=== PATIENT | female | born 1950 | race Caucasian/White ===

== ENCOUNTER 2020-05-01 17:40 | Emergency (ER) | payer MEDICARE, BC ==
[2020-05-01] MEDS: Nitroglycerin 0.4 MG Tab.SL SL PRN ×2 (18:20→19:29)
--- NOTE | 2020-05-01 18:21 | EDM.PDOC ---
ED HPI GENERAL MEDICAL PROBLEM - General Chief Complaint: Cardiovascular Problem Stated Complaint: CHEST PAIN Time Seen by Provider: 05/01/20 18:00 Source of Information: Reports: Patient History Limitations: Reports: No Limitations - History of Present Illness INITIAL COMMENTS - FREE TEXT/NARRATIVE: 70-year-old female noted some heaviness in her chest of 11 AM this morning some 7 hours ago which has persisted nearly all the time of variable intensity and severity since then. No associated nausea vomiting. No radiation of pain. No diaphoresis. No history of the same pain. She does have back discomfort and sees a chiropractor and did today. About 4 PM the chiropractor gave her adjustments but she continued with discomfort in her chest to the chiropractor together with her family member suggested to come in as she had not felt like this before. She has no history of cardiac disease and does not take medications by prescription. Father at age 32 apparently of heart disease Normal activity but does not go up and down steps much because her arthritis in her knees hurts too much. Onset: Today, Sudden Duration: Hour(s):, Intermittent Location: Reports: Chest Quality: Reports: Dull, Pressure Severity: Moderate Improves with: Reports: None Worsens with: Reports: None Associated Symptoms: Reports: Chest Pain. Denies: Cough, Diaphoresis, Nausea/Vomiting Upper Back Pain Score (Numeric/FACES): 5 - Related Data Allergies Allergy/AdvReac Type Severity Reaction Status Date / Time fluorescein Allergy Other Verified 04/01/16 06:46 latex Allergy Rash Verified 04/01/16 06:46 Sulfa (Sulfonamide Allergy Nausea Verified 06/28/15 15:34 Antibiotics) Home Meds: Home Meds NK [No Known Home Meds] 05/02/20 [History] Past Medical History HEENT History: Reports: Hard of Hearing Cardiovascular History: Reports: Blood Clots/VTE/DVT Respiratory History: Reports: Bronchitis, Recurrent, Other (See Below) Other Respiratory History: pleurisy Gastrointestinal History: Reports: Colon Polyp Genitourinary History: Reports: Other (See Below) Other Genitourinary History: bladder repair x 3 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: 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 Uterine Bleeding, Fibroids Musculoskeletal History: Reports: Arthritis, Fracture, Other (See Below) Other Musculoskeletal History: left leg fracture in 3rd grade, bone spur right heel Endocrine/Metabolic History: Reports: Obesity/BMI 30+ Oncologic (Cancer) History: Reports: Basal Cell Carcinoma, Other (See Below) Other Oncologic History: basal cell ca removed from face,chest, back Dermatologic History: Reports: Cellulitis - Infectious Disease History Infectious Disease History: Reports: Chicken Pox, Measles, Mumps - Past Surgical History HEENT Surgical History: Reports: Oral Surgery, Tonsillectomy Musculoskeletal Surgical History: Reports: Carpal Tunnel Social & Family History - Family History Family Medical History: No Pertinent Family History - Tobacco Use Tobacco Use Status *Q: Never Tobacco User - Caffeine Use Caffeine Use: Reports: Coffee Caffeine Use Comment: quit drinking coffee 2 weeks ago ED ROS GENERAL - Review of Systems Review Of Systems: See Below Constitutional: Reports: No Symptoms HEENT: Reports: No Symptoms Respiratory: Reports: No Symptoms Cardiovascular: Reports: Chest Pain Endocrine: Reports: No Symptoms GI/Abdominal: Reports: No Symptoms : Reports: No Symptoms Musculoskeletal: Reports: Back Pain Skin: Reports: No Symptoms Neurological: Reports: No Symptoms Psychiatric: Reports: No Symptoms Hematologic/Lymphatic: Reports: No Symptoms Immunologic: Reports: No Symptoms ED EXAM, GENERAL - Physical Exam Exam: See Below Exam Limited By: No Limitations General Appearance: Alert, WD/WN, Anxious, Mild Distress Eye Exam: Bilateral Eye: EOMI, PERRL Ears: Normal External Exam Ear Exam: Bilateral Ear: Other (poor hearing bilaterally) Nose: Normal Inspection Throat/Mouth: Normal Inspection Head: Atraumatic, Normocephalic Neck: Normal Inspection Respiratory/Chest: No Respiratory Distress, Lungs Clear, Normal Breath Sounds, No Accessory Muscle Use Cardiovascular: Regular Rate, Rhythm, No Edema GI/Abdominal: Normal Bowel Sounds, Soft, Non-Tender Extremities: Normal Inspection, Normal Range of Motion, Non-Tender, No Pedal Edema Course - Vital Signs Text/Narrative:: female developed chest heaviness at 11:00 this morning which is persisted intermittently all day. No history of cardiac disease but has a father who at 32 of heart disease. Glycerin sublingually gives her complete relief of her discomfort and her chest x-ray is unremarkable. Her work is okay except for a troponin of of about 5. Cardiogram at 7:00 shows a rather similar cardiogram but perhaps some T wave inversions developed now in the lateral leads. [place] will be made for transfer to cardiology in if available 7;30 p.m. she has a little recurrent chest tightness which responded with again with nitroglycerin Dr. Holden is willing to accept the patient in transfer and will be sent to the emergency department in [place]. The cardiograms are sent by phone to Dr. Dunn Reports a flourscein allergy 324 aspirin chewable and bolus of heparin and drip ordered Last Recorded V/S: Last Vital Signs Temp 35.2 C L 05/01/20 18:02 Pulse 81 05/01/20 19:28 Resp 19 05/01/20 19:28 BP 158/98 H 05/01/20 19:29 Pulse Ox 99 05/01/20 19:28 - Orders/Labs/Meds Labs: Laboratory Tests 05/01/20 05/01/20 05/01/20 Range/Units 18:14 18:14 18:14 WBC 9.6 (4.5-11.0) K/uL RBC 5.14 (3.30-5.50) M/uL Hgb 14.2 (12.0-15.0) g/dL Hct 43.5 (36.0-48.0) % MCV 85 (80-98) fL MCH 28 (27-31) pg MCHC 33 (32-36) % Plt Count 182 (150-400) K/uL PT 10.5 (9.5-12.0) sec INR 0.96 (0.80-1.20) D-Dimer, Quantitative 595.05 H (0.0-500.0) ng/mL ABG Hemoglobin (12.0-16.0) g/dL ABG Oxyhemoglobin % ABG Carboxyhemoglobin (0.0-1.6) % ABG Methemoglobin % VBG pH (7.350-7.450) VBG pCO2 mm/Hg VBG pO2 mm/Hg VBG HCO3 mmol/L VBG Total CO2 mmol/L VBG O2 Saturation VBG O2 Content %vol VBG Base Excess mm/L O2 Delivery Device Sodium (140-148) mmol/L Potassium (3.6-5.2) mmol/L Chloride (100-108) mmol/L Carbon Dioxide (21-32) mmol/L Anion Gap (5.0-14.0) mmol/L BUN (7-18) mg/dL Creatinine (0.6-1.0) mg/dL Est Cr Clr Drug Dosing mL/min Estimated GFR (MDRD) (>60) Glucose (74-106) mg/dL Calcium (8.5-10.1) mg/dL Total Bilirubin (0.2-1.0) mg/dL AST (15-37) U/L ALT (12-78) U/L Alkaline Phosphatase (46-116) U/L Troponin I (0.000-0.056) ng/mL Total Protein (6.4-8.2) g/dL Albumin (3.4-5.0) g/dL Globulin (2.3-3.5) g/dL Albumin/Globulin Ratio (1.2-2.2) SARS-CoV-2 RNA (ADA) (NEGATIVE) 05/01/20 05/01/20 05/01/20 Range/Units 18:14 18:20 18:44 WBC (4.5-11.0) K/uL RBC (3.30-5.50) M/uL Hgb (12.0-15.0) g/dL Hct (36.0-48.0) % MCV (80-98) fL MCH (27-31) pg MCHC (32-36) % Plt Count (150-400) K/uL PT (9.5-12.0) sec INR (0.80-1.20) D-Dimer, Quantitative (0.0-500.0) ng/mL ABG Hemoglobin 13.9 (12.0-16.0) g/dL ABG Oxyhemoglobin 73.2 % ABG Carboxyhemoglobin 1.3 (0.0-1.6) % ABG Methemoglobin 0.9 % VBG pH 7.401 (7.350-7.450) VBG pCO2 41.0 mm/Hg VBG pO2 42.5 mm/Hg VBG HCO3 24.9 mmol/L VBG Total CO2 22.1 mmol/L VBG O2 Saturation 74.8 VBG O2 Content 14.3 %vol VBG Base Excess 0.6 mm/L O2 Delivery Device Room air Sodium 143 (140-148) mmol/L Potassium 3.7 (3.6-5.2) mmol/L Chloride 110 H (100-108) mmol/L Carbon Dioxide 27 (21-32) mmol/L Anion Gap 9.7 (5.0-14.0) mmol/L BUN 16 (7-18) mg/dL Creatinine 0.9 (0.6-1.0) mg/dL Est Cr Clr Drug Dosing 55.23 mL/min Estimated GFR (MDRD) > 60 (>60) Glucose 107 H (74-106) mg/dL Calcium 9.2 (8.5-10.1) mg/dL Total Bilirubin 0.4 (0.2-1.0) mg/dL AST 21 (15-37) U/L ALT 21 (12-78) U/L Alkaline Phosphatase 54 (46-116) U/L Troponin I 5.103 H* (0.000-0.056) ng/mL Total Protein 7.0 (6.4-8.2) g/dL Albumin 3.5 (3.4-5.0) g/dL Globulin 3.5 (2.3-3.5) g/dL Albumin/Globulin Ratio 1.0 L (1.2-2.2) SARS-CoV-2 RNA (ADA) Negative (NEGATIVE) Meds: Medications Discontinued Medications Generic Name Dose Route Start Last Admin Trade Name Freq PRN Reason Stop Dose Admin Aspirin 324 mg 05/01/20 19:46 05/01/20 19:54 Aspirin PO 05/01/20 19:47 324 mg ONETIME ONE Administration Heparin Sodium (Porcine) 4,000 units 05/01/20 19:46 05/01/20 19:54 Heparin Sodium IVPUSH 05/01/20 19:47 4,000 units .BOLUS ONE Administration Nitroglycerin 0.4 mg 05/01/20 18:15 05/01/20 19:29 Nitrostat SL 0.4 mg Q5M PRN Administration Chest Pain Departure - Departure Time of Disposition: 19:32 Disposition: DC/Tfer to Acute Hospital 02 Reason for Transfer *Q: Other (Possible angiography and/or stent) Condition: Good, Serious Clinical Impression: Ischemic heart disease due to coronary artery obstruction, Chest pain Coronary artery disease Qualifiers: Coronary Disease-Associated Artery/Lesion type: [place] artery [place] vs. transplanted heart: [place] heart Associated angina: with unstable angina Qualified Code(s): I25.110 - Atherosclerotic heart disease of [place] coronary artery with unstable angina pectoris Chest pain due to myocardial ischemia Qualifiers: Ischemic chest pain type: unstable angina pectoris Qualified Code(s): I20.0 - Unstable angina Referrals: Callie Christine PA [Primary Care Provider] - Forms: ED Department Discharge, Interfacility Transfer [facility] Sepsis Event Note (ED) - Evaluation Sepsis Screening Result: No Definite Risk
[2020-05-01 19:29] VITALS: BP 158/98; PULSE 81
[2020-05-01] MEDS ORDERED: Heparin Sodium 5,000 Units/ML Vial IVPUSH ONE (19:46)
[2020-05-01] MEDS ORDERED: Aspirin 81 MG Tab.Chew PO ONE (19:46)
--- NOTE | 2020-05-02 09:03 | CR ---
CHEST: Portable 05/11/2020 at 6:30 PM CLINICAL HISTORY:SOB and chest pain COMPARISON: 2009 FINDINGS: The heart size, pulmonary vascularity and hilar structures are normal. No infiltrate effusion or pneumothorax is seen. There are atherosclerotic changes in the aorta. IMPRESSION: No acute cardiopulmonary process
== END 2020-05-01 20:43 ==
LOC: JP.ED 17:40
DX: I21.9 Acute myocardial infarction, unspecified (principal); I25.110 Atherosclerotic heart disease of native coronary artery with unstable angina pectoris; E66.9 Obesity, unspecified; Z68.30 Body mass index [BMI] 30.0-30.9, adult; Z20.828 Contact with and (suspected) exposure to other viral communicable diseases; Z91.040 Latex allergy status; Z88.2 Allergy status to sulfonamides; Z88.8 Allergy status to other drugs, medicaments and biological substances
CPT/HCPCS: 36415; 71045; 80053; 82803; 84484; 85027; 85379; 85610; 93005; 93010; 96374; 99285; A9270; J1644; U0002

== ENCOUNTER 2021-04-21 13:27 | Emergency (ER) | payer MEDICARE, BC ==
[2021-04-21 13:56] VITALS: BP 141/63; PULSE 68
--- NOTE | 2021-04-21 14:18 | EDM.PDOC ---
ED HPI GENERAL MEDICAL PROBLEM - General Chief Complaint: General Stated Complaint: right eye maybe BROKEN BLOOD VESSEL Time Seen by Provider: 04/21/21 14:18 Source of Information: Reports: Patient, RN Notes Reviewed History Limitations: Reports: No Limitations - History of Present Illness INITIAL COMMENTS - FREE TEXT/NARRATIVE: Garth presents today with bleeding to the right eye. She states she was sitting at her computer when her eye stated irritating her, she rubbed it and now she has blood to the white of her eye. She states this happened at about 1300 today. She denies any injury or trauma to the eye. She denies fever, chills, nausea, vomiting, change in bowel/bladder or other concerns. She take warfarin. - Related Data Allergies Allergy/AdvReac Type Severity Reaction Status Date / Time fluorescein Allergy Other Verified 04/21/21 13:51 latex Allergy Rash Verified 04/21/21 13:51 Sulfa (Sulfonamide Allergy Nausea Verified 04/21/21 13:51 Antibiotics) Home Meds: Home Meds Losartan [Cozaar] 25 mg PO DAILY 10/15/20 [History] carvediloL [Carvedilol] 25 mg PO DAILY 10/15/20 [History] Sotalol [Betapace, Sorine] 80 mg PO BID 04/21/21 [History] Warfarin [Coumadin] 5 mg PO ASDIRECTED 04/21/21 [History] Past Medical History HEENT History: Reports: Hard of Hearing, Impaired Vision Cardiovascular History: Reports: Afib, Blood Clots/VTE/DVT, Other (See Below) Other Cardiovascular History: broken heart syndrome Respiratory History: Reports: Bronchitis, Recurrent, Other (See Below) Other Respiratory History: pleurisy Gastrointestinal History: Reports: Colon Polyp Genitourinary History: Reports: Other (See Below) Other Genitourinary History: bladder repair x 3 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: 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 Uterine Bleeding, Fibroids Musculoskeletal History: Reports: Arthritis, Fracture, Other (See Below) Other Musculoskeletal History: left leg fracture in 3rd grade, bone spur right heel Endocrine/Metabolic History: Reports: Obesity/BMI 30+ Hematologic History: Reports: Anticoagulation Therapy Oncologic (Cancer) History: Reports: Basal Cell Carcinoma, Squamous Cell Carcinoma, Other (See Below) Other Oncologic History: basal cell ca removed from face,chest, back Dermatologic History: Reports: Cellulitis - Infectious Disease History Infectious Disease History: Reports: Chicken Pox, Measles, Mumps, Novel Coronavirus - Past Surgical History HEENT Surgical History: Reports: Oral Surgery, Tonsillectomy Cardiovascular Surgical History: Reports: None Respiratory Surgical History: Reports: None GI Surgical History: Reports: Colonoscopy, Polypectomy Female Surgical History: Reports: Hysterectomy, Salpingo-Oophorectomy Musculoskeletal Surgical History: Reports: Carpal Tunnel Oncologic Surgical History: Reports: None Social & Family History - Family History Family Medical History: No Pertinent Family History - Tobacco Use Tobacco Use Status *Q: Never Tobacco User - Caffeine Use Caffeine Use: Reports: Coffee Caffeine Use Comment: quit drinking coffee 2 weeks ago ED ROS GENERAL - Review of Systems Review Of Systems: See Below Constitutional: Reports: No Symptoms HEENT: Reports: Eye Pain (pain 3/10, patient states it feels weird and swollen. ). Denies: Contact Lenses, Ear Discharge, Ear Pain, Eye Discharge, Nosebleed, Nose Pain, Rhinitis, Sinus Problem, Throat Pain, Throat Swelling, Vertigo, Vision Change Respiratory: Reports: No Symptoms Cardiovascular: Reports: No Symptoms Endocrine: Reports: No Symptoms GI/Abdominal: Reports: No Symptoms : Reports: No Symptoms Musculoskeletal: Reports: No Symptoms Skin: Reports: No Symptoms Neurological: Reports: No Symptoms Psychiatric: Reports: No Symptoms Hematologic/Lymphatic: Reports: No Symptoms Immunologic: Reports: No Symptoms ED EXAM, GENERAL - Physical Exam Exam: See Below Exam Limited By: No Limitations General Appearance: Alert, WD/WN, No Apparent Distress Eye Exam: Bilateral Eye: PERRL, Other (subconjunctival hematoma to 95% right eye) Ears: Normal External Exam, Normal Canal, Hearing Grossly Normal, Normal TMs Throat/Mouth: Normal Inspection, Normal Lips, Normal Teeth, Normal Gums, Normal Oropharynx, Normal Voice, No Airway Compromise Head: Atraumatic, Normocephalic Neck: Normal Inspection, Supple, Non-Tender, Full Range of Motion. No: Ly mphadenopathy (R), Lymphadenopathy (L) Respiratory/Chest: No Respiratory Distress, Lungs Clear, Normal Breath Sounds, No Accessory Muscle Use, Chest Non-Tender Cardiovascular: Normal Peripheral Pulses, Regular Rate, Rhythm, No Edema, No Gallop, No Murmur, No Rub Peripheral Pulses: 4+: Radial (L), Radial (R) Back Exam: Normal Inspection, Full Range of Motion. No: CVA Tenderness (R), CVA Tenderness (L) Extremities: Normal Inspection, Normal Range of Motion, Non-Tender, No Pedal Edema, Normal Capillary Refill Neurological: Alert, Oriented, CN II-XII Intact, Normal Cognition, Normal Gait, Normal Reflexes, No Motor/Sensory Deficits Psychiatric: Normal Affect, Normal Mood Skin Exam: Warm, Dry, Intact, Normal Color, No Rash Lymphatic: No Adenopathy Course - Vital Signs Last Recorded V/S: Last Vital Signs Temp 36.7 C 04/21/21 13:55 Pulse 68 04/21/21 13:55 Resp 17 04/21/21 13:55 BP 141/63 H 04/21/21 13:55 Pulse Ox 98 04/21/21 13:55 - Orders/Labs/Meds Labs: Laboratory Tests 04/21/21 04/21/21 Range/Units 15:24 15:24 WBC 3.8 L (4.5-11.0) K/uL RBC 4.98 (3.30-5.50) M/uL Hgb 13.6 (12.0-15.0) g/dL Hct 41.3 (36.0-48.0) % MCV 83 (80-98) fL MCH 27 (27-31) pg MCHC 33 (32-36) % Plt Count 165 (150-400) K/uL Add Manual Diff Yes Neutrophils % (Manual) 57 (36-66) % Lymphocytes % (Manual) 27 (24-44) % Monocytes % (Manual) 11 H (2-6) % Eosinophils % (Manual) 5 H (2-4) % Polychromasia PT 17.5 H (9.2-10.6) sec INR 1.8 APTT 28.5 (21.4-31.8) sec Patient lab work reviewed, no acute findings. - Re-Assessments/Exams Free Text/Narrative Re-Assessment/Exam: 04/21/21 14:45 Dr. Ford to check right eye, he agrees witny my assessment of subconjunctival hematoma. 04/21/21 14:52 Offered patient acetaminophen for pain, she declines stating she has some at home. Departure - Departure Time of Disposition: 16:12 Disposition: Home, Self-Care 01 Condition: Good Clinical Impression: Subconjunctival hematoma - Discharge Information *PRESCRIPTION DRUG MONITORING PROGRAM REVIEWED*: Not Applicable *COPY OF PRESCRIPTION DRUG MONITORING REPORT IN PATIENT ESE: Not Applicable Referrals: Callie Christine PA [Primary Care Provider] - Forms: ED Department Discharge Additional Instructions: You have been evaluated and treated for subconjunctival hematoma of the right eye. Avoid injury to the eye. Follow up with your warfarin clinic as scheduled. The bright red blood will turn to brown and slowly dissolve. It will take around two weeks for the hematoma to slowly dissolve. You may use rewetting eye drops for the eye up to 3 to 4 times a day. Examples would be systane eye drops, Refresh tears. Follow up with your primary as needed and with optometry as needed. Take acetaminophen as needed for pain. Return for change in vision, any issues or concerns. Today your labs: INR 1.8 PT 17.5 PTT 28.5 Sepsis Event Note (ED) - Evaluation Sepsis Screening Result: No Definite Risk - Focused Exam Vital Signs: Vital Signs Temp Pulse Resp BP Pulse Ox 04/21/21 13:55 36.7 C 68 17 141/63 H 98 - Assessment/Plan Assessment:: Subconjunctival hematoma Plan: Patient evaluated and treated for subconjunctival hematoma of the right eye. Avoid injury to the eye. Follow up with warfarin clinic as scheduled. The bright red blood will turn to brown and slowly dissolve. It will take around two weeks for the hematoma to slowly dissolve. Patient may use rewetting eye drops for the eye up to 3 to 4 times a day. Examples would be systane eye drops, Refresh tears. Follow up with primary as needed and with optometry as needed. Take acetaminophen as needed for pain. Return for change in vision, any issues or concerns.
== END 2021-04-21 16:17 | disposition home or self-care (01) ==
LOC: JP.ED 13:27
DX: H11.31 Conjunctival hemorrhage, right eye (principal); I48.91 Unspecified atrial fibrillation; E66.9 Obesity, unspecified; Z68.30 Body mass index [BMI] 30.0-30.9, adult; Z86.718 Personal history of other venous thrombosis and embolism; Z91.040 Latex allergy status; Z88.2 Allergy status to sulfonamides; Z88.8 Allergy status to other drugs, medicaments and biological substances; Z79.899 Other long term (current) drug therapy; Z79.01 Long term (current) use of anticoagulants
CPT/HCPCS: 36415; 85025; 85610; 85730; 99283

== ENCOUNTER 2022-07-17 22:19 | Emergency (ER) | payer MEDICARE, BC ==
[2022-07-17 22:46] VITALS: BP 173/79; PULSE 54
== END 2022-07-17 23:12 | disposition home or self-care (01) ==
LOC: JP.ED 22:19
DX: I48.0 Paroxysmal atrial fibrillation (principal); I11.0 Hypertensive heart disease with heart failure; I50.9 Heart failure, unspecified; E66.9 Obesity, unspecified; Z68.30 Body mass index [BMI] 30.0-30.9, adult; Z91.040 Latex allergy status; Z88.2 Allergy status to sulfonamides; Z79.899 Other long term (current) drug therapy; Z91.048 Other nonmedicinal substance allergy status; Z86.16 Personal history of COVID-19; Z79.01 Long term (current) use of anticoagulants
CPT/HCPCS: 99283

== ENCOUNTER 2022-12-12 07:53 | Day surgery (SDC) | payer MEDICARE, BC ==
[2022-12-12 08:15] VITALS: BP 131/62; PULSE 51
[2022-12-12] MEDS ORDERED: Sodium Chloride 0.9% 10 ML Syringe FLUSH PRN (08:45)
== END 2022-12-12 09:10 | disposition home or self-care (01) ==
LOC: JP.SDS 07:53
PROVIDERS: ATTEND Ophthalmology
DX: H26.9 Unspecified cataract (principal); I50.9 Heart failure, unspecified; I48.91 Unspecified atrial fibrillation; Z88.2 Allergy status to sulfonamides; Z88.5 Allergy status to narcotic agent; Z91.040 Latex allergy status; Z91.041 Radiographic dye allergy status
CPT/HCPCS: 66984; J3490

== ENCOUNTER 2023-01-02 07:22 | Day surgery (SDC) | payer MEDICARE, BC ==
[2023-01-02] MEDS ORDERED: Sodium Chloride 0.9% 10 ML Syringe FLUSH PRN (07:30)
[2023-01-02 08:35] VITALS: BP 145/70; PULSE 56
== END 2023-01-02 08:41 | disposition home or self-care (01) ==
LOC: JP.SDS 07:22
PROVIDERS: ATTEND Ophthalmology
DX: H26.9 Unspecified cataract (principal); I10 Essential (primary) hypertension; Z88.2 Allergy status to sulfonamides; Z91.040 Latex allergy status; Z88.5 Allergy status to narcotic agent; Z91.041 Radiographic dye allergy status
CPT/HCPCS: 66984; J3490

== ENCOUNTER 2024-12-01 09:38 | Emergency (ER) | payer MEDICARE, BC ==
[2024-12-01 10:28] LABS: BASOPHILS ABSOLUTE AUTO 0.04 K/uL (0.00-0.10); BASOPHILS PERCENT AUTO 0.8 % (0.1-1.3); EOSINOPHILS ABSOLUTE AUTO 0.13 K/uL (0.00-0.40); EOSINOPHILS PERCENT AUTO 2.5 % (0.0-5.4); HEMATOCRIT 40.4 % (34.3-46.0); HEMOGLOBIN 13.2 g/dL (11.2-15.5); IMMATURE GRAN PERCENT AUTO 0.2 % (0.0-0.7); LYMPHOCYTES ABSOLUTE AUTO 1.83 K/uL (0.8-3.3); LYMPHOCYTES PERCENT AUTO 35.7 % (11.4-47.7); MEAN CORPUSCULAR HEMOGLOBIN 28.4 pg (31.6-35.5); MEAN CORPUSCULAR HGB CONC 32.7 g/dL (31.6-35.5); MEAN CORPUSCULAR VOLUME 87.1 fL (81.4-99.0); MONOCYTES PERCENT AUTO 11.7 % (3.3-12.6); NEUTROPHILS ABSOLUTE AUTO 2.51 K/uL (1.0-7.6); NEUTROPHILS PERCENT AUTO 49.1 % (40.0-78.1); PLATELET COUNT,PLT 175 K/uL (130-375); RED BLOOD CELL COUNT 4.64 M/uL (3.77-5.24); WHITE BLOOD CELL COUNT,WBC 5.1 K/uL (3.2-11.0)
[2024-12-01 10:30] LABS: IMMATURE GRAN ABSOLUTE AUTO 0.01 K/uL (0.00-0.23)
[2024-12-01 10:56] LABS: BLOOD UREA NITROGEN,BUN 18 mg/dL (7-18); CALCIUM 9.5 mg/dL (8.5-10.1); CARBON DIOXIDE,CO2 29 mmol/L (21-32); CHLORIDE,CL 105 mmol/L (100-108); CREATININE 0.8 mg/dL (0.6-1.0); EST CRCL DRUG DOSING (CG) 58.63 mL/min; ESTIMATED GFR 78 mL/min (>60); GLUCOSE RANDOM 98 mg/dL (74-106); POTASSIUM,K 4.1 mmol/L (3.6-5.2); SODIUM,NA 139 mmol/L (140-148)
[2024-12-01 10:57] LABS: ANION GAP 9.1 mmol/L (5.0-14.0); TROPONIN I HIGH SENSITIVITY < 4.0 pg/mL (<=60.3)
[2024-12-01] MEDS: Ketorolac 30 MG/ML SDV IM ONE (11:24)
[2024-12-01 11:28] VITALS: BP 134/65; PULSE 60
== END 2024-12-01 11:57 | disposition home or self-care (01) ==
LOC: JP.ED 09:38
DX: R07.89 Other chest pain (principal); I11.0 Hypertensive heart disease with heart failure; I50.9 Heart failure, unspecified; I48.91 Unspecified atrial fibrillation; Z86.16 Personal history of COVID-19; Z88.5 Allergy status to narcotic agent; Z88.2 Allergy status to sulfonamides; Z91.040 Latex allergy status; Z91.041 Radiographic dye allergy status; Z88.8 Allergy status to other drugs, medicaments and biological substances; Z79.899 Other long term (current) drug therapy; Z79.01 Long term (current) use of anticoagulants
CPT/HCPCS: 36415; 71046; 80048; 83880; 84484; 85025; 93005; 96372; 99285; J1885

== ENCOUNTER 2025-02-28 21:22 | Emergency (ER) | payer MEDICARE, BC ==
[2025-02-28 21:59] VITALS: BP 175/76; PULSE 61
[2025-02-28] MEDS: Ketorolac 30 MG/ML SDV IM ONE (22:19)
== END 2025-03-01 00:25 | disposition home or self-care (01) ==
LOC: JP.ED 21:22
DX: S30.0XXA Contusion of lower back and pelvis, initial encounter (principal); I48.91 Unspecified atrial fibrillation; I11.0 Hypertensive heart disease with heart failure; I50.9 Heart failure, unspecified; Z86.16 Personal history of COVID-19; Z90.710 Acquired absence of both cervix and uterus; Z79.899 Other long term (current) drug therapy; Z79.01 Long term (current) use of anticoagulants; Z91.040 Latex allergy status; Z88.5 Allergy status to narcotic agent; Z88.2 Allergy status to sulfonamides; Z88.8 Allergy status to other drugs, medicaments and biological substances; W10.8XXA Fall (on) (from) other stairs and steps, initial encounter
CPT/HCPCS: 72100; 73502; 96372; 99283; J1885